=== PATIENT | female | born 1940 ===

== ENCOUNTER 2017-09-22 09:54 | Day surgery (SDC) | payer MEDICARE, OTHER ==
[2017-09-22 12:37] VITALS: BMI 28.3
[2017-09-22] MEDS ORDERED: Midazolam 2 MG/2 ML VIAL ONE ×2 (12:38→12:39)
[2017-09-22] MEDS ORDERED: Lidocaine 2% Inj (20ml) ONE ×2 (12:52→13:11)
[2017-09-22] MEDS ORDERED: Iodixanol 320 MG/ML 100 ML BOTTLE IV ONE (13:11)
--- NOTE | 2017-09-22 13:27 | PCM.IRPREO ---
Pre Procedure Note - History Proposed Procedure: Left iliofemoral DVT thrombectomy Pre-Op Diagnosis: Iliofemoral DVT - Pre Procedure Were any radiologic studies performed in the last 12 months: Yes (Vascular Ultrasound, CT abdomen/Pelvis) List of radiologic studies performed: CT abdomen/pelvis, Vascular venous ultrasound Was medical management performed in the past 24 months: Yes List of medical management performed: Pt anticoagulated Clinical indication for the procedure: Symptomatic iliofemoral DVT Have risks and benefits been explained to the patient: Yes (Risk bleeding, vessel injury, pulmonary embolism) Risks and benefits been explained to the patient: Risk are bleeding, pulmonary embolism, vessel injury Have alternatives to surgery explained to the patient as applicable: Yes ( Anticoagulation, IVC filter) - Allergies Allergies: Allergies No Known Allergies Allergy (Verified 12/09/16 15:04) - Physical Exam General Appearance: Appears well Mental Status: Alert & Oriented x3 Neuro: WNL Heart: WNL Lungs: WNL GI: WNL - Specialist Directed Exam Other Pertinent Findings: Left leg >> large - Impression Impression: Pt with left iliofemoral DVT, DVT IVC. Plan rheolytic thrombectomy left iliofemoral DVT and possible CLAY BURNER and stent.
--- NOTE | 2017-09-22 14:00 | PCM.SURG1 ---
Surgeon's Initial Post Op Note - Surgeon's Notes Surgeon: Abdon Levy MD Grounds Restoration Specialist: NONE Type of Anesthesia: IV Sedation Pre-Operative Diagnosis: Iliofemoral DVT Operative Findings: Significant thrombus left popliteal vein, ptv, sFV, common femoral vein. iliac veins, infrarenal IVC. Post-Operative Diagnosis: IVC, Iliofemoral DVT Operation Performed: DVT thrombectomy IVC, left iliac vein, SFV, popliteal vein , [employer] left common iliac vein, intravascular stent placement left common iliac vein 14 mm x 80 mm Specimen/Specimens Removed: NONE Estimated Blood Loss: EBL {In ML}: 5 Blood Products Given: N/A Drains Used: No Drains Post-Op Condition: Fair Date of Surgery/Procedure: 09/22/17 Time of Surgery/Procedure: 13:55
[2017-09-22] MEDS ORDERED: Morphine 4 MG/ML VIAL IVP ONE (15:30)
--- NOTE | 2017-09-27 14:44 | SPECPROC ---
Date of procedure: 09/22/2017 Procedure: 1. Ultrasound guidance for vascular access, CPT 13419 2. left lower extremity venogram, inferior venacavagram. 3. Thrombectomy left iliac vein, left external iliac vein, left common femoral vein, left superficial femoral vein, left popliteal vein. Medications: 9 cc 1 % lidocaine, patient was sedated by the anesthesiologist along with physiologic monitoring, 10 milligrams and tPA Contrast: 100 cubic centimeters Visipaque 320, EBL: 10 milliliters HISTORY: Venous thromboembolism left lower extremity with severe leg swelling, pulmonary embolism. TECHNIQUE: Following informed consent and procedure time-out, the patient placed prone on the interventional table. Ultrasound showed a noncompressible left popliteal vein. The left lower extremity was prepped and draped in the usual sterile fashion. After the skin was anesthetized with 1 percent lidocaine, the popliteal vein was accessed with ultrasound guidance using micropuncture technique. A guidewire was advanced into the femoral vein. Small amount of dilute contrast injected through the 5 [place] sheath showed significant thrombus throughout the popliteal vein and femoral vein. Multiple collateral veins are present. The 5 [place] dilator was changed over a wire for a 6 [place] vascular sheath. Through the sheath, an angled catheter was advanced over the wire into the inferior vena cava. An inferior vena cavagram was performed. Inferior vena cavagram showed thrombus in the infrarenal IVC. Thrombus is nonocclusive in the inferior vena cava. 10 milligram tPA was infused along the length of the iliac vein common femoral vein and superficial femoral vein. The 6 [place] vascular sheath was exchanged over a wire for an 8 [place] vascular sheath. Through the sheath, Angiojet catheter was advanced into the popliteal vein and rheolytic thrombectomy was performed. The aspiration catheter was advanced throughout the femoral vein and iliac veins and into the IVC. Two passes were made throughout the deep veins with the catheter. A repeat venogram performed showed significant improvement in the thrombus throughout the femoral veins and iliac veins. Abnormality was noted in the left common iliac vein. 9 millimeter balloon was advanced over the wire and positioned across the left common iliac vein. Percutaneous balloon angioplasty performed. An area of stenosis, visible waist, was seen in the common iliac vein. With prolonged angioplasty, there was effacement also waist. Post balloon angioplasty repeat venogram showed moderate improvement in the appearance of the left common iliac vein. A bare metal stent, 14 millimeter x 80 millimeter was then deployed across the left comments iliac vein extending into the IVC. The stent was then post dilated. Post thrombectomy, balloon angioplasty and intravascular stent placement venogram showed significant improved thrombus throughout the superficial femoral vein, common femoral vein, external iliac vein, common iliac vein and IVC. An angled catheter was advanced into the common iliac stent and positioned with the use into the contralateral right common iliac vein. A right common iliac venogram was performed which showed grade flow throughout the right common iliac vein into the IVC. Previously placed stent was not occlusive. The vascular sheath was then removed and hemostasis achieved with manual compression. There were no immediate complications. IMPRESSION: 1. Left lower extremity venogram showed significant venous thromboembolism from infrarenal IVC and the left common iliac vein extending to the popliteal vein and in the tibial veins. 2. Angiojet thrombectomy with significant improvement to thrombus within the femoral veins and iliac veins. 3. Balloon angioplasty of 50 percent left common iliac vein with a 9 millimeter balloon. This was followed by intravascular stent placement 14 millimeter x 80 millimeter within the left common iliac vein.
== END 2017-09-22 18:07 | disposition short-term general hospital (02) ==
LOC: C.CATHLAB 09:54
PROVIDERS: ATTEND Radiology Vascular & Interventional Radiology
DX: R10.9 Unspecified abdominal pain (principal); K55.9 Vascular disorder of intestine, unspecified; I82.422 Acute embolism and thrombosis of left iliac vein; Z86.711 Personal history of pulmonary embolism; Z79.899 Other long term (current) drug therapy
CPT/HCPCS: 37213; 75820; 75894; 76937; C1757; C1766; C1769; C1876; C1887; J1644; J2250; J2270; J2405; J2997; J3010; Q9967